=== PATIENT | female | born 1935 | race Caucasian/White ===

== ENCOUNTER 2017-01-07 04:09 | Emergency (ER) | payer OTHER ==
[2017-01-07 03:53] LABS: BASOPHILS 0.3 %; BASOPHILS ABSOLUTE 0.04 10/3/uL (0.0-0.16); EOSINOPHILS 0.7 %; EOSINOPHILS ABSOLUTE 0.09 10/3/uL (0.0-0.53); HEMOGLOBIN 14.3 g/dL (12.0-16.0); IMMATURE GRANULOCYTES 0.3 %; IMMATURE GRANULOCYTES ABSOLUTE 0.04 10/3/uL (0.0-0.11); LYMPHOCYTES 10.7 %; LYMPHOCYTES ABSOLUTE 1.29 10/3/uL (0.67-4.30); MEAN CORPUSCULAR HEMOGLOB 30.3 pg (26.0-34.0); MEAN CORPUSCULAR VOLUME 89.2 fL (80-100); MEAN PLATELET VOLUME 8.8 fL (9.2-13.0); MONOCYTES 4.7 %; MONOCYTES ABSOLUTE 0.57 10/3/uL (0.21-1.20); NEUTROPHILS 83.3 %; NEUTROPHILS ABSOLUTE 10.01 10/3/uL (2.02-8.40); PLATELET COUNT 211 10/3/uL (150-400); RBC DISTRIBUTION WIDTH 14.2 % (12.0-16.0); RED CELL COUNT 4.72 10/6/uL (4.0-5.6)
[2017-01-07 03:54] LABS: HEMATOCRIT 42.1 % (36.0-48.0); MANUAL DIFF NO %
[2017-01-07 03:59] LABS: INTERNATIONAL NORMAL RATI 0.9 UNITS (-); PROTIME (NOT ORD) 12.4 SEC (12.0-14.5)
[~2017-01-07 04:09] MED LIST: *UNABLE1; *UNABLE2; *UNABLE3; ADVAIR DISKUS INH; ADVAIR250 INH; AEROCHAMBER PLUS; ARICEPT23 MG PO; ASA5GR PO; ASAB PO; ASABAYER PO; AVELOX400 PO; CALCIUM PO; CANNOT RECALL; CARTIA XT240 MG/24 PO; DULERA 200 MCG/13 GM INH; EXELON9.5T TOP; FLEX PO; FLONASE NAS; FLORASTOR250 MG PO; GABARONE300 MG PO; HUMI PO; HUMIBID1200 MG PO; KEPPRA250 PO; L20 PO; LEVAQUIN750 MG PO; LIPITOR10 PO; LIPITOR40 PO; LORTAB 5 PO; MACROBID PO; MAGNESIUM OTC PO; MAGOX4 PO; MAXIMUM D PO; MCZ125 PO; MCZ25 PO; MIACALCIN NAS; MONUROL POWDER 33 GM PO; MULTIPLE VIT PO; MULTIVIT/MIN PO; MULTIVITAMI1 PO; NEUR100; NEUR100 PO; NEUR300 PO; NEUR400 PO; NORCO1 TA1 PO; NORCO1 TA2 PO; NORV10 PO; NORV5 PO; OMNICEF300 PO; P10 PO; PR12.5 PO; PR25 PO; PRILO PO; PRILOSEC OTC20 MG PO; PRILOSEC40 MG PO; PRIN10 PO; PRIN2.5 PO; PROAIR HFA INH; REG5 PO; SENOKOTS PO; SENTAB; SPIRIVA INH; STERAPRED DS10 MG; STOOL SOFTENER OTC PO; T; T PO; VENTOLIN HFA; VENTOLIN HFA INH; ZANAFLEX 4 MG TA4 MG PO; ZOFRAN ODT4 MG PO; ZOFRAN ODT4 MG SL; ZOFRAN4 PO; [UNRECOGNIZED DRUG - OTHER] PO
[2017-01-07 04:11] LABS: A/G RATIO 1.2 (0.7-1.9); ALBUMIN 3.9 G/DL (3.5-5.0); ALKALINE PHOSPHATASE 101 U/L (45-117); BUN (BLOOD UREA NITROGEN) 9 MG/DL (6-23); CALCIUM, SERUM 8.7 MG/DL (8.5-10.4); CHLORIDE, SERUM 102 MMOL/L (96-112); CO2 (CARBON DIOXIDE) 28 MMOL/L (24-34); CREATININE 0.94 MG/DL (0.55-1.02); GFR AFRICAN AMERICAN 66 ML/MIN (>=60); GFR NON AFRICAN AMERICAN 57 ML/MIN (>=60); GLOBULIN 3.3 G/DL (2.5-4.1); GLUCOSE, SERUM 142 MG/DL (60-99); SGOT(AST) 11 U/L (5-40); SGPT(ALT) 11 U/L (5-65); SODIUM, SERUM 142 MMOL/L (135-148); TOTAL BILIRUBIN 0.2 MG/DL (0-1.2); TOTAL PROTEIN 7.2 G/DL (6.0-8.5)
[2017-05-23] MEDS ORDERED: ARICEPT23 MG PO (03:53)
[2017-05-23] MEDS ORDERED: LIPITOR10 PO (03:53)
[2017-05-23] MEDS ORDERED: NORCO1 TA2 PO (03:54)
[2017-05-23] MEDS ORDERED: PEPTO-BISMOL262 MG PO (03:54)
[2017-05-23] MEDS ORDERED: *UNABLE3 (03:55)
== END 2017-01-07 08:58 | disposition home or self-care (01) ==
LOC: ER 04:09
PROVIDERS: Emergency Medicine
DX: R11.10 Vomiting, unspecified (principal); I10 Essential (primary) hypertension; J44.9 Chronic obstructive pulmonary disease, unspecified; J45.909 Unspecified asthma, uncomplicated; I48.91 Unspecified atrial fibrillation; F03.90 Unspecified dementia, unspecified severity, without behavioral disturbance, psychotic disturbance, mood disturbance, and anxiety; F17.200 Nicotine dependence, unspecified, uncomplicated; Z88.2 Allergy status to sulfonamides; Z88.5 Allergy status to narcotic agent; Z79.82 Long term (current) use of aspirin; Z79.899 Other long term (current) drug therapy
CPT/HCPCS: 36415; 71010; 74177; 80053; 85025; 85610; 86850; 86870; 86900; 86901; 86905; 96374; 96375; 99285; A9270-GY; J0360; J2550; Q9967

== ENCOUNTER 2017-01-30 10:25 | Emergency (ER) | payer OTHER ==
[2017-05-23] MEDS ORDERED: LIPITOR10 PO (03:53)
[2017-05-23] MEDS ORDERED: ARICEPT23 MG PO (03:53)
[2017-05-23] MEDS ORDERED: PEPTO-BISMOL262 MG PO (03:54)
[2017-05-23] MEDS ORDERED: NORCO1 TA2 PO (03:54)
[2017-05-23] MEDS ORDERED: *UNABLE3 (03:55)
== END 2017-01-30 14:12 | disposition home or self-care (01) ==
LOC: ER 10:25
DX: S42.032A Displaced fracture of lateral end of left clavicle, initial encounter for closed fracture (principal); J44.9 Chronic obstructive pulmonary disease, unspecified; I48.91 Unspecified atrial fibrillation; F03.90 Unspecified dementia, unspecified severity, without behavioral disturbance, psychotic disturbance, mood disturbance, and anxiety; F17.200 Nicotine dependence, unspecified, uncomplicated; Z87.01 Personal history of pneumonia (recurrent); Z87.440 Personal history of urinary (tract) infections; Z86.718 Personal history of other venous thrombosis and embolism; Z88.2 Allergy status to sulfonamides; Z88.5 Allergy status to narcotic agent; Z79.82 Long term (current) use of aspirin; Z79.899 Other long term (current) drug therapy; W19.XXXA Unspecified fall, initial encounter
CPT/HCPCS: 70450; 73030-LT; 99284